=== PATIENT | female | born 1945 | race Caucasian/White ===

== ENCOUNTER 2018-02-27 05:19 | Inpatient (IN) | payer OTHER, MEDICARE ==
[~2018-02-27] VITALS: Ht 157.5 cm; Wt 77.8 kg
[~2018-02-27 05:19] MED LIST: AMLO5TAB2 PO; ATOR40TA16 PO; COQ-100C5 PO; D200CAP2 PO; HYDR25TA5 PO; LEVO112T2 PO; MELO15TA20 PO; VITA200C3 PO
[2018-02-27] MEDS ORDERED: CHLORHEXIDINE GLUCONATE 4% SOLN 120 ML BTL TOPICAL SCH (05:45)
[2018-02-27] MEDS ORDERED: CEFAZOLIN INJ 2,000 MG in SODIUM CHLORIDE 0.9% INJ 100 ML IV PRN (05:45)
[2018-02-27] MEDS ORDERED: TRANEXAMIC ACID INJ 780 MG in SODIUM CHLORIDE 0.9% INJ 100 ML IV SCH (05:45)
[2018-02-27] MEDS ORDERED: VANCOMYCIN 1 GM/200 ML PREMIX ON-CALL IV SCH (05:45)
[2018-02-27] MEDS ORDERED: SODIUM CHLORID 0.9% 500 ML IV PRN (06:00)
[2018-02-27] MEDS ORDERED: METOPROLOL TARTRATE 25 MG TAB PO PRN (06:00)
[2018-02-27] MEDS ORDERED: CHLORHEXIDINE GLUCONATE 2 % 1 PACK (2 CLOTHS) TOPICAL PRN (06:00)
[2018-02-27] MEDS ORDERED: LACTATED RINGER'S 1000 ML IV PRN (06:00)
[2018-02-27] MEDS ORDERED: POVIDONE IODINE 5% (ANTISEPSIS KIT) 4 APPLICATIONS EACH NARE PRN (06:00)
[2018-02-27] MEDS ORDERED: VITA500S3 SL (06:07)
[2018-02-27] MEDS ORDERED: GENTAMICIN SULFATE 80 MG/2 ML VIAL ONE (06:19)
[2018-02-27] MEDS ORDERED: FAT EMULSION 20% INJ 0 ML ONE (06:29)
[2018-02-27] MEDS ORDERED: fentaNYL CITRATE 250 MCG/5 ML AMP ONE (06:37)
[2018-02-27] MEDS ORDERED: MIDAZOLAM HCL 2 MG/2 ML VIAL ONE (07:04)
[2018-02-27] MEDS ORDERED: APREPITANT 40 MG CAP ONE (07:04)
[2018-02-27] MEDS ORDERED: ROPIVACAINE 0.5% PF INJ 30 ML VIAL ONE (07:04)
[2018-02-27] MEDS ORDERED: DEXAMETHASONE SOD PHOS PF 10 MG/ML VIAL ONE (07:07)
[2018-02-27] MEDS ORDERED: ROPIVACAINE 0.5% PF INJ 30 ML VIAL PRN (07:30)
[2018-02-27] MEDS ORDERED: APREPITANT 40 MG CAP PO PRN (07:30)
[2018-02-27] MEDS ORDERED: MIDAZOLAM HCL 2 MG/2 ML VIAL IV PRN (07:30)
[2018-02-27] MEDS ORDERED: SUGAMMADEX SODIUM 200 MG/2 ML VIAL IV PUSH ONE (09:10)
[2018-02-27] MEDS ORDERED: diphenhydrAMINE HCL 25 MG CAP PO PRN (10:00)
[2018-02-27] MEDS ORDERED: MAGNESIUM HYDROXIDE SUSP 30 ML CUP PO PRN (10:00)
[2018-02-27] MEDS ORDERED: ONDANSETRON HCL 4 MG/2 ML VIAL IVP PRN (10:00)
--- NOTE | 2018-02-27 10:10 | PD.OP ---
cc: Moisés Huang MD Operative Report Date of Surgery: Feb 27, 2018 Preoperative Diagnosis: Osteoarthritis right shoulder Postoperative Diagnosis: Same Procedure: Right total shoulder replacement arthroplasty Anesthesia: Gen. with anterior interscalene block Surgeon: Moisés Huang Family Resource Management Specialist(s): PETE Medrano Operation and Findings: EBL: 100 cc. NOTE: Caroline Medrano PA-C was present for the entire surgical procedure as my medical lab assistant. In my medical opinion her skill and care was necessary for proper management of this patient. INDICATION: This patient is a 72-year-old female with multiple joint arthritis. She's had a previous total shoulder replacement and previous bilateral total knee replacement arthroplasty for degenerative arthritis. She's had several years of conservative care of her right shoulder including injections, physical therapy, limited activities etc. She's developing significant osteoarthritis of the glenohumeral joint. She presents for surgical treatment COMPONENTS: WHITE STEM: 15 humeral stem BODY: Medium, body HEAD: 46, 4 mm offset GLENOID: Small, 3 peg, cemented, polyethylene PROCEDURE: The patient brought the operating room and anesthetized in the supine position. The patient was placed on a standard table. The patient is placed in a semi-beachchair position, and the left shoulder was over the edge of the table allowing it to be brought into full extension. The head was placed in the Hightower adapter and secured properly. The right arm and shoulder was scrubbed with alcohol followed by Hibiclens followed by chloro prep and draped sterilely. And antibiotics were given within 1 hour time window. A timeout was done. A deltopectoral incision was made. The cephalic vein was mobilized with the deltoid. The proximal humerus was exposed. The biceps tendon was identified and protected. It was resected and then protected for later use to be re- attached at the end of the procedure. The subscapularis muscle was identified. A stay suture was placed within the subscapularis tendon. The tendon was released approximately 8 mm from its attachment. The inferior and anterior and posterior capsules were released. The head was cut with approximately 30 of retroversion. That head was removed. The glenoid was exposed further. This was sized for a small 3 peg glenoid component. Provisional measuring and preparation was done. A temporary glenoid component was positioned. The proximal humerus was exposed. The supraspinatus tendon was protected. A car pilot hole was placed within the humerus and progressively broached up to a size 15 reamer anticipating the same size stem. A trial reduction showed that we were able to use a proper head size. Balancing was very satisfactory. Retroversion was very satisfactory. Overall fit was quite good. The final preparation of the glenoid was accomplished. The glenoid component was cemented with methylmethacrylate. Excessive cement was removed. The component was quite stable. The attention was directed to the humerus. The final component was positioned. The final head was trialed and a trial reduction showed excellent balancing. Final components were assembled and impacted. The shoulder was reduced. The shoulder was stable to approximately 60 of external rotation. With traction we could sublux the humeral head approximately one third the way down along the edge of the glenoid. This was stable in internal rotation and external rotation. The wound was irrigated copiously. Hemostasis was controlled. The subscapularis muscle was repaired with interrupted #2 Tycron sutures. The biceps tendon was tenodesed in the region of the bicipital groove. A small stay suture was placed in the deltopectoral interval. Subcutaneous tissue was approximated with 2-0 Vicryl suture and skin with running intradermal 3-0 Vicryl followed by benzoin and Steri-Strips. The sponge count, needle counts and instrument counts were all correct. Sterile dressing was applied. The patient placed into a sling. The patient was awakened and taken to the recovery room in satisfactory condition The wound was irrigated copiously. Hemostasis was controlled. The deltopectoral interval was tacked down with 2-0 Vicryl suture. Subcutaneous tissue was approximated with 2-0 Vicryl and skin with running #3-0 Vicryl followed by benzoin and Steri-Strips. Sponge count needle counts and sponge counts were all correct. The patient tolerated procedure well was taken to recovery room in satisfactory condition. FINDINGS: There was evidence of an atretic biceps tendon. This was tenodesed after being resected allowing good visualization. The component balancing was very satisfactory. There was no complication was appreciated. Moisés Huang MD Feb 27, 2018 10:10
[2018-02-27] MEDS ORDERED: traMADol-ACETAMIN 37.5-325 MG PO (10:13)
[2018-02-27] MEDS ORDERED: DO NOT ADM ANY ANTICOAGULANT DRUGS PRN (10:20)
[2018-02-27] MEDS: LACTATED RINGER'S 1000 ML INJ 1,000 ML IV SCH ×2 (10:33→19:52)
[2018-02-27] MEDS ORDERED: Post-op Orders (for Pharmacy) XX ONE (11:00)
--- NOTE | 2018-02-27 11:28 | RADRPT ---
EXAM DATE/TIME: 02/27/2018 10:29 [facility] COMPARISON: No previous studies available for comparison. INDICATIONS : Post-op right shoulder. MEDICAL HISTORY : None. SURGICAL HISTORY : None. ENCOUNTER: Initial ACUITY: 1 day PAIN SCORE: 0/10 LOCATION: Right Shoulder. FINDINGS: A single view shows a newly placed humeral head prosthesis that appears intact and normally aligned. No fractures are demonstrated. No unexpected radiopaque objects. CONCLUSION: No acute abnormalities demonstrated. Right humeral head arthroplasty changes. Vitaliy Vee MD on February 27, 2018 at 11:24 Board Certified Radiologist. This report was verified electronically.
[2018-02-27] MEDS ORDERED: PROPOFOL 200 MG/20 ML AMP IV ONE (12:00)
[2018-02-27] MEDS ORDERED: SODIUM CHLOR 0.9% 250 ML INJ 250 ML IV ONE (12:00)
[2018-02-27] MEDS ORDERED: ePHEDrine/NS 25 MG/5 ML SYRINGE IV ONE (12:00)
[2018-02-27] MEDS ORDERED: ONDANSETRON HCL 4 MG/2 ML VIAL IV ONE (12:00)
[2018-02-27] MEDS ORDERED: PHENYLEPHRINE HCL 10 MG/ML VIAL IV ONE (12:00)
[2018-02-27] MEDS ORDERED: GLYCOPYRROLATE 1 MG/5 ML SYRINGE IV PUSH ONE (12:00)
[2018-02-27] MEDS ORDERED: LIDOCAINE HCL 1% PF 5 ML SYRINGE OTHER ONE (12:00)
[2018-02-27] MEDS ORDERED: ROCURONIUM INJ 50 MG/5 ML SYRINGE IV PUSH ONE (12:00)
[2018-02-27] MEDS ORDERED: ceFAZolin INJ 1,000 MG VIAL IV ONE (12:00)
[2018-02-27] MEDS ORDERED: DEXAMETHASONE SOD PHOS 4 MG/ML VIAL IV ONE (12:00)
[2018-02-27] MEDS ORDERED: NEOSTIGMINE 5 MG/5 ML SYRINGE IV PUSH ONE (12:00)
[2018-02-27] MEDS: traMADol/ACETAMINOPHEN 37.5/325 1 TAB PO PRN ×2 (14:12→22:49)
[2018-02-27 15:43] VITALS: BP 132/55; PULSE 75; RESP 18; TEMP 95.9; O2SAT 96
[2018-02-27 19:30] VITALS: BP 122/58; PULSE 70; RESP 17; TEMP 98.4; O2SAT 94
[2018-02-27] MEDS: DOCUSATE SODIUM 50 MG/SENNA 8.6 MG TAB PO SCH (19:49)
[2018-02-27] MEDS ORDERED: ATORVASTATIN 40 MG TAB PO SCH (21:00)
[2018-02-27] MEDS ORDERED: ZOLPIDEM TARTRATE 5 MG TAB PO PRN (21:00)
[2018-02-27 21:32] VITALS: O2SAT 96
[2018-02-28 01:00] VITALS: BP 111/56; PULSE 69; RESP 17; TEMP 98.9; O2SAT 95
[2018-02-28] MEDS: traMADol/ACETAMINOPHEN 37.5/325 1 TAB PO PRN ×3 (02:54→10:31)
[2018-02-28 04:00] VITALS: BP 138/63; PULSE 75; RESP 16; TEMP 98.3; O2SAT 94
[2018-02-28] MEDS ORDERED: LEVOTHYROXINE SODIUM 112 MCG TAB PO SCH (06:00)
[2018-02-28] MEDS: DOCUSATE SODIUM 50 MG/SENNA 8.6 MG TAB PO SCH (07:27)
[2018-02-28 08:00] VITALS: BP 115/56; PULSE 69; RESP 17; TEMP 98.5; O2SAT 94
--- NOTE | 2018-02-28 08:10 | HHI.DCPOC ---
Discharge Care Plan Diagnosis: (1) Osteoarthritis of right shoulder Your Health Problems Are: Difficulty with ADL Incision/Drains Inflammation Goals to Promote Your Health * To prevent worsening of your condition and complications * To maintain your health at the optimal level Directions to Meet Your Goals Take your medications as prescribed Follow your dietary instruction Follow activity as directed Keep your appointments as scheduled Take your immunizations and boosters as scheduled If your symptoms worsen call your PCP, if no PCP go to Urgent Care Center or Emergency Room Smoking is Dangerous to Your Health. Avoid second hand smoke Call the 24-hour hour crisis hotline for domestic abuse at Caroline Medrano Feb 28, 2018 08:10
--- NOTE | 2018-02-28 08:11 | HHI.DS ---
Discharge Summary Admission Date Feb 27, 2018 at 05:19 Discharge Date: Feb 28, 2018 Admitting Diagnosis see below Diagnosis: (1) Osteoarthritis of right shoulder Diagnosis: Principal ICD Codes: M19.011 - Primary osteoarthritis, right shoulder Procedures Right total shoulder arthroplasty Brief History This is a 72 year old female patient with a history of bilateral shoulder pain. She underwent left total shoulder arthroplasty in 2013 and did well. Her right shoulder was stable for 2 years but began causing increased pain in 2015. She sought out treatment. Xrays were repeated and she was found to have moderate advancing arthritis. She used OTC tylenol and advil. She began taking meloxicam. She had a right shoulder injection 08/2017 which relieved about half her pain for a month. Her function continued to decline. Eventually surgical treatment was recommended in the form of right total shoulder arthroplasty. She agreed and now presents for the above procedure. Hospital Course Surgical treatment was performed on the day of admission without complication. She recovered well in PACU and was transferred to the orthopaedic floor. Pain was controlled with IV and oral medications after the scalene blockade had worn off. She was compliant with her sling and all precautions including no external rotation past 20 degrees. After 1 day she was found to be stable and discharged home. No home health care was needed. She was educated to continue her sling for comfort, to ice the shoulder 2-3 times daily, to pursue a high fiber diet and to limit rotation of the shoulder. She was given a prescription for Tramadol. Pt Condition on Discharge: Stable Discharge Disposition: Discharge Home Discharge Instructions Diet Instructions: As Tolerated, No Restrictions, High Fiber Diet Activities You Can Perform: See Additionl Instruction Activities to Avoid: Strenuous Activity Additional Activity Instruc.: Sling as needed. No external rotation greater than 20 New Medications: [traMADol-ACETAMIN 37.5-325 MG] () 1 TAB TAB 1 TAB PO Q4H for Pain Management, #42 TAB Continued Medications: Amlodipine (Amlodipine) 5 Mg Tab 5 MG PO DAILY for Blood Pressure Management, #30 TAB 0 Refills Atorvastatin (Atorvastatin) 40 Mg Tab 40 MG PO HS for Cholesterol Management, #30 TAB 0 Refills Cholecalciferol (D3) 2,000 Unit Cap 1 CAP PO DAILY Coenzyme Q10 (Ubidecarenone) (Coq-10 Tr) 100 Mg Cap 2 CAP PO HS Cyanocobalamin (Vitamin B-12) 500 Mcg Subl 500 MCG SL DAILY for Nutritional Supplement, TAB.SL 0 Refills Hydrochlorothiazide (Hydrochlorothiazide) 25 Mg Tab 25 MG PO DAILY, #30 TAB 0 Refills Levothyroxine (Levothyroxine) 112 Mcg Tab 112 MCG PO DAILY for Thyroid, #30 TAB 0 Refills Meloxicam (Meloxicam) 15 Mg Tab 15 MG PO DAILY for Arthritis Pain, #30 TAB 0 Refills Vitamin E (Vitamin E) 200 Unit Cap 400 UNITS PO DAILY for Nutritional Supplement, CAP 0 Refills Caroline Medrano Feb 28, 2018 08:11
[2018-02-28] MEDS ORDERED: amLODIPine BESYLATE 5 MG TAB PO SCH (09:00)
[2018-02-28] MEDS ORDERED: HYDROCHLOROTHIAZIDE 25 MG TAB PO SCH (09:00)
[2018-02-28] MEDS ORDERED: MULTIVITAMINS/MINERALS THERAPEUTIC TAB PO SCH (09:00)
[2018-02-28 09:49] VITALS: O2SAT 95
[2018-02-28 12:00] VITALS: BP 131/60; PULSE 74; RESP 18; TEMP 97.3; O2SAT 93
--- NOTE | 2018-02-28 13:19 | PD.ORT.PN ---
Subjective Subjective Remarks She was doing very well until 7am today. Her block began to wear off and her pain increased. No new radiating arm pain but 'shoulder is throbbing badly'. No loss of sensation distal. No concerns otherwise. Ready for d/c home. No new CP or SOB. Objective Vitals Vital Signs Date Time Temp Pulse Resp B/P (MAP) Pulse Ox O2 Delivery O2 Flow Rate FiO2 02/28/18 12:00 97.3 74 18 131/60 (83) 93 02/28/18 08:00 98.5 69 17 115/56 (75) 94 02/28/18 04:00 98.3 75 16 138/63 (88) 94 02/28/18 01:00 98.9 69 17 111/56 (74) 95 02/27/18 21:32 96 21 02/27/18 19:30 98.4 70 17 122/58 (79) 94 02/27/18 16:10 Room Air 02/27/18 15:43 95.9 75 18 132/55 (80) 96 02/27/18 14:00 97.9 74 16 125/59 (81) 96 Nasal Cannula 2 I/O 02/27/18 02/27/18 02/27/18 02/28/18 02/28/18 02/28/18 07:00 15:00 23:00 07:00 15:00 23:00 Intake Total 1300 ml Output Total 100 ml Balance 1200 ml Intake Oral 300 ml Other 1000 ml Output Estimated Blood Loss 100 ml # Voids 1 4 Procedures Right total shoulder arthroplasty Objective Remarks Laying in bed 2 friends present NAD VSS RUE Sling in place, dressing right shoulder intact, minimal drainage, mild swelling, no erythema +motor local area network systems adminstrator, brachiorad, +sens hand, +nvi Assessment & Plan Ortho Post Op Day #: 1 Problem List: (1) Osteoarthritis of right shoulder ICD Codes: M19.011 - Primary osteoarthritis, right shoulder Assessment and Plan pod#1 s/p R TSA Ortho stable. Moderate pain. PO meds helping. Ok to d/c home today. No HHC needed. Sling multimedia assistant for comfort. Ok to remove for gentle ROM elbow and wrist. No external rotation past 15-20 degrees. Ice right shoulder 2-3 times daily. Follow up in 2 weeks as scheduled. Caroline Medrano Feb 28, 2018 13:18
== END 2018-02-28 14:35 | disposition home or self-care (01) | DRG 483 ==
LOC: HSDI 05:19 → N06A 15:04
PROVIDERS: ADMIT Orthopaedic Surgery Orthopaedic Surgery of the Spine; ATTEND Orthopaedic Surgery Orthopaedic Surgery of the Spine
PROC: 3E0T3BZ Introduction of Anesthetic Agent into Peripheral Nerves and Plexi, Percutaneous Approach (ICD-10-PCS; 2018-02-27)
PROC: 0RRJ0JZ Replacement of Right Shoulder Joint with Synthetic Substitute, Open Approach (ICD-10-PCS; principal; 2018-02-27 07:21)
DX: M19.011 Primary osteoarthritis, right shoulder (principal); E03.9 Hypothyroidism, unspecified; Z96.653 Presence of artificial knee joint, bilateral; Z96.612 Presence of left artificial shoulder joint
CPT/HCPCS: 73020; 86850; 86900; 86901; 94150; C1776; J0690; J1100; J1580; J2250; J2370; J2405; J2710; J2795; J3010; J3370; J7050; J7120; J8501